=== PATIENT | female | born 1990 | race Caucasian/White ===

== ENCOUNTER 2024-09-21 21:26 | Inpatient (IN) ==
[2024-09-21 22:22] LABS: Appearance Urine Clear (Clear); Bilirubin Urine Negative (Negative); Blood Urine Negative (Negative); Color Urine Yellow; Glucose Urine UA Negative (Negative); Ketones Urine Negative (Negative); Leukocyte Esterase Urine Negative (Negative); Nitrite Urine Negative (Negative); Protein Urine Negative (Negative); Specific Gravity Urine 1.005 (1.000-1.030); Urobilinogen Urine Negative (Negative); pH Urine 7.5 (4.5-7.5)
[2024-09-21 22:26] LABS: Basophils # (auto) 0.02 K/uL (0.00-0.20); Basophils % (auto) 0.3 %; Eosinophils # (auto) 0.02 K/uL (0.00-0.50); Eosinophils % (auto) 0.3 %; Hematocrit (blood only) 42.4 % (37.0-47.0); Hemoglobin 14.5 g/dl (12.0-16.0); Immature Granulocytes # (auto) 0.01 K/uL (0.01-0.20); Immature Granulocytes % (auto) 0.1 %; Lymphocytes # (auto) 2.18 K/uL (1.20-3.40); Lymphocytes % (auto) 30.6 %; Mean Corpuscular Hemoglobin 29.2 pg (25.0-34.0); Mean Corpuscular Hgb Conc 34.2 g/dL (32.0-36.0); Mean Corpuscular Volume 85.5 fL (80.0-100.0); Mean Platelet Volume 10.8 fL (9.4-12.4); Monocytes # (auto) 0.54 K/uL (0.11-0.59); Monocytes % (auto) 7.6 %; Neutrophils # (auto) 4.35 K/uL (1.40-6.50); Neutrophils % (auto) 61.1 %; Platelet Count 257 K/uL (130-400); RDW Coefficient of Variation 12.1 % (11.5-14.5); RDW Standard Deviation 37.4 fL (36.4-46.3); Red Blood Count 4.96 M/uL (4.20-5.40); White Blood Count 7.12 K/ul (4.8-10.8)
[2024-09-21] MEDS: MAGNESIUM SULFATE / D5W 1 GM/100 ML BAG IV SCH (22:30)
[2024-09-21 22:44] LABS: Acetaminophen < 3 ug/ml (10-30); Salicylate < 3.0 mg/dl (3.0-30)
[2024-09-21] MEDS: SODIUM CHLORIDE 0.9% 1,000 ML IV ONE (22:45)
[2024-09-21 22:46] LABS: Alanine Aminotransferase 27 U/L (7-52); Albumin Globulin Ratio 1.8 (0.9-2); Albumin Level 4.8 gm/dl (3.4-5.0); Alkaline Phosphatase 47 U/L (34-104); Anion Gap 11 (3-11); Aspartate Aminotransferase 18 U/L (13-39); BUN Creatinine Ratio 7.4 (10-20); Bilirubin,Total 1.1 mg/dl (0.2-1.0); Blood Urea Nitrogen 6 mg/dl (6-23); Calcium 8.9 mg/dl (8.6-10.3); Carbon Dioxide 26 mmol/L (21-32); Chloride 103 mmol/L (98-107); Globulin 2.6 gm/dl (2.5-4.0); Glucose 61 mg/dl (70-99(Fasting)); Potassium 2.5 mmol/L (3.5-5.1); Sodium 140 mmol/L (136-145); Total Protein 7.4 gm/dl (6.0-8.3)
[2024-09-21 22:51] LABS: Magnesium 2.1 mg/dl (1.7-2.4)
[2024-09-21 23:02] LABS: Amphetamines+Metham, Urine Neg (Neg); Barbiturates, Urine Neg (Neg); Benzodiazepine, Urine Neg (Neg); Cocaine, Urine Neg (Neg); Fentanyl, Urine Neg (Neg); MDMA (Ecstacy), Urine Neg (Neg); Marijuana, Urine Neg (Neg); Methadone, Urine Neg (Neg); Opiate, Urine Neg (Neg); Phencyclidine, Urine Neg (Neg)
[2024-09-21 23:02] LABS: Phosphorus 2.9 mg/dl (2.5-4.9)
[2024-09-21 23:05] LABS: Pregnancy Test, Urine Negative (Negative)
[2024-09-21] MEDS: LORazepam 2 MG/1 ML VIAL IV STA (23:09)
[2024-09-21] MEDS: DEXTROSE 5% 1,000 ML IV SCH (23:12)
[2024-09-21] MEDS: POTASSIUM CHLORIDE / WTR 10 MEQ/100 ML PLCT IV SCH (23:12)
--- NOTE | 2024-09-21 23:51 | Emergency Department Note ---
Impression & Plan Suicide attempt, Suicide attempt by multiple drug overdose, QT prolongation ED Provider Note NAME: EJ BARLOW AGE: 34 SEX: F : 1990 ARRIVES VIA: Ambulance INFORMANT: Patient ED PROVIDER(S): Naveen Asher MD CHIEF COMPLAINT: Overdose, Suicide attempt PLAN: Disposition: Admit MEDICAL DECISION MAKING: The patient is a 34-year-old woman who presents to the emergency department via EMS for evaluation after a suicide attempt where the patient overdosed on her medications at 6 PM and attempt to kill himself. Patient reports she took 12 tablets of her Zoloft which she understands is the lowest dose, 12 tablets of 25 mg hydroxyzine, and 12 tablets of Unisom. Patient reports she feels jittery. She denies nausea or vomiting. She reports she is willing to proceed with inpatient psychiatric treatment. Patient confirms she attempted to kill herself due to from her partner. On evaluation the patient is in no acute distress, afebrile with heart in the 100s and vital signs otherwise stable. She appears clinically dry. Pupils are 4 mm and reactive. Reflexes are within normal limits. She has 2 beats of lower extremity clonus bilaterally. EKG demonstrates QTc prolongation in the 600s. QRS is within normal limits. No overt acute ischemia. WBC, H/H and platelets within normal limits. Chemistry without metabolic acidosis. Potassium was low at 2.5 with IV repletion initiated. Magnesium was 2.1 however 2 g administered due to QTc prolongation per Poison Control [facility] recommendations including to repeat EKG and electrolytes/chemistry in 4 hours. LFTs unremarkable. TSH within normal limits. UA without convincing evidence of infection. Acetaminophen and salicylates were undetectable. Drug screen was negative otherwise. Medical alcohol was 105. Patient treated with IV fluid hydration including dextrose and normal saline due to glucose in the 60s. IV Ativan administered to mitigate symptoms of overdose. Dr. [place], [facility], to evaluate the patient for admission. Repeat EKG with subsequent improved QTc. Further management per admitting team. Triage Nursing notes reviewed and agree them. Prior/external medical records reviewed Vital Signs: reviewed Differential diagnosis: Overdose, toxicologic, infection, hypoglycemia, electrolyte abnormalities, cardiac sources, intracerebral event, neurologic, trauma, as well as other pathologies. ER treatment provided: See below. Diagnostics interpreted by me: ECG 2202: Normal sinus rhythm, 99 bpm, nonspecific T wave abnormality, prolonged QTc with QTc of 690, QRS of 84. No overt ST ovation or depression. ECG 2359: Sinus tachycardia, 105 bpm, no ectopy, T wave abnormality, no overt ST elevation or depression, QTc 663, QRS 84. ECG 0221: Sinus tachycardia, 104 bpm, T wave abnormality, no overt ST elevation or depression, QTc 446, improved, QRS 82. Cardiac Monitoring: An order for continuous cardiac monitoring was placed and demonstrated sinus tachycardia, 105 bpm, no ectopy. Laboratory studies: See below Imaging studies: See below Consultation(s): Poison Control Center Dr. Govea, [facility] HPI: The patient is a 34-year-old woman who presents to the emergency department via EMS for evaluation after a suicide attempt where the patient overdosed on her medications at 6 PM and attempt to kill himself. Patient reports she took 12 tablets of her Zoloft which she understands is the lowest dose, 12 tablets of 25 mg hydroxyzine, and 12 tablets of Unisom. Patient reports she feels jittery. She denies nausea or vomiting. She reports she is willing to proceed with inpatient psychiatric treatment. Patient confirms she attempted to kill herself due to from her partner. ROS: See above HPI for pertinent positives & negatives. A total of 10 systems reviewed and were otherwise negative. VITALS:See Below PHYSICAL EXAMINATION: GENERAL: Awake, alert, in no distress HENT: Normocephalic, atraumatic. Oropharynx with dry mucous membranes and otherwise unremarkable. EYES: Normal conjunctiva. Sclera non-icteric. EOMI. No nystamgus. PEARRL. Pupils are 4 mm bilaterally and reactive. NECK: Supple. No nuchal rigidity. FROM. No JVD. RESPIRATORY: Clear to auscultation. CARDIAC: Tachycardic rate, normal rhythm. Extremities warm and well perfused. Pulses equal. ABDOMEN: Soft, non-distended. No tenderness to palpation. No rebound or guarding. No masses. MUSCULOSKELETAL: Chest examination reveals no tenderness. The back is symmetrical on inspection without obvious abnormality. There is no CVA tenderness to palpation. No joint edema. LOWER EXTREMITIES: Calves are equal size bilaterally and non-tender. No edema. No discoloration. NEURO: No sensory or motor deficits noted. DTRs wnl. 2 beats of BLE clonus. SKIN: No rash or jaundice noted. ED COURSE: Critical Care: I have personally spent greater than 45 minutes of critical care time in the direct management of this patient. This includes bedside care, interpretation of diagnostic studies, and testing, discussion with consultants, patient, and family members, and other required patient management activities. This 45 minutes is in excess of all separately billable procedures. Naveen Asher MD Past Med/Surg History Problem List (Updated 09/22/24 @ 16:46 by Naveen Asher MD) QT prolongation (Acute) Suicide attempt by multiple drug overdose (Acute) Suicide attempt (Acute) Depression Intentional self-harm Hypokalemia (Acute) Chest pain (Acute) Vaginal bleeding, abnormal History of 2019 novel coronavirus disease (COVID-19) (Acute) Abdominal pain (Acute) Abdominal pain (Acute) RLQ abdominal pain (Acute) Vasovagal near syncope (Acute) Medical History COVID-19 Surgical History S/P laparoscopy dx for endo (not found) at age 22-21 S/P tonsillectomy S/P cholecystectomy Family History Grandmother (Maternal) Lung cancer great grandmother Denies family history of Ovarian cancer Breast cancer Colorectal cancer Social History Smoking Status: Never smoker Tobacco Type: Declines Hx Alcohol Use: Yes Hx Substance Use: No Preferred Language: Romanian Communication Ability: Effective 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 Beliefs That Will Affect Care: None Current Living Situation: Significant Other Feels Safe at Home: Hesitant to Answer Safety Concerns: Feels Safe At This Time Allergies Allergies Allergy/AdvReac Type Severity Reaction Status Date / Time doxepin Allergy Severe ITCHING Unverified 07/26/24 08:34 Home Meds Home Medications Medication Instructions Recorded Confirmed hydroxyzine HCl 10 mg tablet 10 mg PO TID PRN Anxiety 09/22/24 09/22/24 sertraline 25 mg tablet 25 mg PO DAILY 09/22/24 09/22/24 Results & Data (ED) Vital Signs Vital Signs - 24 hr 09/21/24 21:15 09/21/24 21:15 09/21/24 21:50 Temperature 37.1 C Temperature Source Oral Pulse Rate 97 H 108 H Pulse Rate [Apical] Respiratory Rate 14 Respiratory Effort / Characteristics Non-Labored Spontaneous Respiratory Depth Normal Respiratory Pattern Regular Blood Pressure 126/72 Blood Pressure [Right Arm] Blood Pressure Mean 90 Blood Pressure Mean [Right Arm] Pulse Oximetry 99 99 Oxygen Delivery Method Room Air Room Air Sepsis Recent Fever Within 48 Hours No Sepsis New/Unexplained Change in Mental Status N/A Sepsis Action Taken by Nursing No Action Required 09/21/24 22:22 09/21/24 22:30 09/21/24 23:00 Temperature Temperature Source Pulse Rate Pulse Rate [Apical] 102 H 103 H 103 H Respiratory Rate 16 14 20 Respiratory Effort / Characteristics Non-Labored Spontaneous Non-Labored Spontaneous Non-Labored Spontaneous Respiratory Depth Normal Normal Normal Respiratory Pattern Regular Regular Regular Blood Pressure Blood Pressure [Right Arm] 116/69 104/71 115/67 Blood Pressure Mean Blood Pressure Mean [Right Arm] 84 82 83 Pulse Oximetry 98 99 97 Oxygen Delivery Method Room Air Room Air Room Air Sepsis Recent Fever Within 48 Hours Sepsis New/Unexplained Change in Mental Status Sepsis Action Taken by Nursing 09/21/24 23:30 09/22/24 00:00 09/22/24 00:00 Temperature Temperature Source Pulse Rate Pulse Rate [Apical] 106 H 100 H Respiratory Rate 18 23 Respiratory Effort / Characteristics Non-Labored Spontaneous Respiratory Depth Normal Respiratory Pattern Regular Blood Pressure Blood Pressure [Right Arm] 111/69 127/75 Blood Pressure Mean Blood Pressure Mean [Right Arm] 83 92 Pulse Oximetry 99 98 Oxygen Delivery Method Room Air Room Air Sepsis Recent Fever Within 48 Hours Sepsis New/Unexplained Change in Mental Status Sepsis Action Taken by Nursing Laboratory Data Attestation: I reviewed the patient's lab results. 09/22/24 05:33 09/22/24 14:34 Lab Results 09/21/24 09/21/24 09/21/24 Range/Units 21:40 21:50 21:55 WBC 7.12 (4.8-10.8) K/ul RBC 4.96 (4.20-5.40) M/uL Hgb 14.5 (12.0-16.0) g/dl Hct 42.4 (37.0-47.0) % MCV 85.5 (80.0-100.0) fL MCH 29.2 (25.0-34.0) pg MCHC 34.2 (32.0-36.0) g/dL RDW Std Deviation 37.4 (36.4-46.3) fL RDW Coeff of Elena 12.1 (11.5-14.5) % Plt Count 257 (130-400) K/uL MPV 10.8 (9.4-12.4) fL Immature Gran % (Auto) 0.1 % Neut % (Auto) 61.1 % Lymph % (Auto) 30.6 % Mariposa % (Auto) 7.6 % Eos % (Auto) 0.3 % Baso % (Auto) 0.3 % Neut # (Auto) 4.35 (1.40-6.50) K/uL Lymph # (Auto) 2.18 (1.20-3.40) K/uL Mariposa # (Auto) 0.54 (0.11-0.59) K/uL Eos # (Auto) 0.02 (0.00-0.50) K/uL Baso # (Auto) 0.02 (0.00-0.20) K/uL Immature Gran # (Auto) 0.01 (0.01-0.20) K/uL Sodium 140 (136-145) mmol/L Potassium 2.5 L* (3.5-5.1) mmol/L Chloride 103 (98-107) mmol/L Carbon Dioxide 26 (21-32) mmol/L Anion Gap 11 (3-11) BUN 6 (6-23) mg/dl Creatinine 0.81 (0.6-1.2) mg/dl Est Cr Clr Drug Dosing Not Reportable eGFR 98.85 BUN/Creatinine Ratio 7.4 L (10-20) Glucose 61 L (70-99(Fasting)) mg/dl Calcium 8.9 (8.6-10.3) mg/dl Phosphorus 2.9 (2.5-4.9) mg/dl Magnesium 2.1 (1.7-2.4) mg/dl Total Bilirubin 1.1 H (0.2-1.0) mg/dl AST 18 (13-39) U/L ALT 27 (7-52) U/L Alkaline Phosphatase 47 (34-104) U/L Total Protein 7.4 (6.0-8.3) gm/dl Albumin 4.8 (3.4-5.0) gm/dl Globulin 2.6 (2.5-4.0) gm/dl Albumin/Globulin Ratio 1.8 (0.9-2) TSH 2.700 (0.300-4.500) uIu/ml Urine Color Yellow Urine Appearance Clear (Clear) Urine pH 7.5 (4.5-7.5) Ur Specific [place] 1.005 (1.000-1.030) Urine Protein Negative (Negative) Urine Glucose (UA) Negative (Negative) Urine Ketones Negative (Negative) Urine Blood Negative (Negative) Urine Nitrite Negative (Negative) Urine Bilirubin Negative (Negative) Urine Urobilinogen Negative (Negative) Ur Leukocyte Esterase Negative (Negative) Urine Test (Negative) Salicylates < 3.0 L (3.0-30) mg/dl Urine Opiates Screen Neg (Neg) Ur Methadone, Qual Neg (Neg) Urine Fentanyl Screen Neg (Neg) Acetaminophen < 3 L (10-30) ug/ml Urine Barbiturates Neg (Neg) Ur Phencyclidine (PCP) Neg (Neg) U Amphetamin/Meth Scrn Neg (Neg) MDMA (Ecstasy) Screen Neg (Neg) U Benzodiazepines Scrn Neg (Neg) Ur Cocaine Metabolite Neg (Neg) U Marijuana (THC) Screen Neg (Neg) Ethyl Alcohol mg/dL 105.4 H (<10.0) mg/dl SARS-CoV-2, RNA, NAAT NEGATIVE (NEGATIVE) 09/21/24 Range/Units Unknown WBC (4.8-10.8) K/ul RBC (4.20-5.40) M/uL Hgb (12.0-16.0) g/dl Hct (37.0-47.0) % MCV (80.0-100.0) fL MCH (25.0-34.0) pg MCHC (32.0-36.0) g/dL RDW Std Deviation (36.4-46.3) fL RDW Coeff of Elena (11.5-14.5) % Plt Count (130-400) K/uL MPV (9.4-12.4) fL Immature Gran % (Auto) % Neut % (Auto) % Lymph % (Auto) % Mariposa % (Auto) % Eos % (Auto) % Baso % (Auto) % Neut # (Auto) (1.40-6.50) K/uL Lymph # (Auto) (1.20-3.40) K/uL Mar[place]osa # (Auto) (0.11-0.59) K/uL Eos # (Auto) (0.00-0.50) K/uL Baso # (Auto) (0.00-0.20) K/uL Immature Gran # (Auto) (0.01-0.20) K/uL Sodium (136-145) mmol/L Potassium (3.5-5.1) mmol/L Chloride (98-107) mmol/L Carbon Dioxide (21-32) mmol/L Anion Gap (3-11) BUN (6-23) mg/dl Creatinine (0.6-1.2) mg/dl Est Cr Clr Drug Dosing eGFR BUN/Creatinine Ratio (10-20) Glucose (70-99(Fasting)) mg/dl Calcium (8.6-10.3) mg/dl Phosphorus (2.5-4.9) mg/dl Magnesium (1.7-2.4) mg/dl Total Bilirubin (0.2-1.0) mg/dl AST (13-39) U/L ALT (7-52) U/L Alkaline Phosphatase (34-104) U/L Total Protein (6.0-8.3) gm/dl Albumin (3.4-5.0) gm/dl Globulin (2.5-4.0) gm/dl Albumin/Globulin Ratio (0.9-2) TSH (0.300-4.500) uIu/ml Urine Color Urine Appearance (Clear) Urine pH (4.5-7.5) Ur Specific [place] (1.000-1.030) Urine Protein (Negative) Urine Glucose (UA) (Negative) Urine Ketones (Negative) Urine Blood (Negative) Urine Nitrite (Negative) Urine Bilirubin (Negative) Urine Urobilinogen (Negative) Ur Leukocyte Esterase (Negative) Urine Test Negative (Negative) Salicylates (3.0-30) mg/dl Urine Opiates Screen (Neg) Ur Methadone, Qual (Neg) Urine Fentanyl Screen (Neg) Acetaminophen (10-30) ug/ml Urine Barbiturates (Neg) Ur Phencyclidine (PCP) (Neg) U Amphetamin/Meth Scrn (Neg) MDMA (Ecstasy) Screen (Neg) U Benzodiazepines Scrn (Neg) Ur Cocaine Metabolite (Neg) U Marijuana (THC) Screen (Neg) Ethyl Alcohol mg/dL (<10.0) mg/dl SARS-CoV-2, RNA, NAAT (NEGATIVE) Administered Medications Discontinued Medications Magnesium Sulfate/Dextrose (Magnesium Sulfate / D5w) 1 gm in 100 mls @ 200 mls/hr IV Q30M PROSPER Stop: 09/21/24 23:17 Last Infusion: 09/21/24 23:52 Dose: Infused Documented By: Admin: 09/21/24 23:12 Dose: 200 mls/hr Documented By: Infusion: 09/21/24 23:05 Dose: Infused Documented By: Admin: 09/21/24 22:30 Dose: 200 mls/hr Documented By: RANJAN Sodium Chloride (Nss) 1,000 mls @ 999 mls/hr IV .Q1H1M ONE Stop: 09/21/24 23:38 Last Infusion: 09/21/24 23:52 Dose: Infused Documented By: Admin: 09/21/24 22:45 Dose: 999 mls/hr Documented By: RANJAN Dextrose (D5w) 1,000 mls @ 999 mls/hr IV .Q1H1M PROSPER Stop: 09/22/24 22:59 Last Admin: 09/22/24 00:45 Dose: Not Given Documented By: Infusion: 09/22/24 00:42 Dose: Infused Documented By: Admin: 09/21/24 23:12 Dose: 999 mls/hr Documented By: RANJAN Potassium Chloride (K Julian / Wtr) 10 meq in 100 mls @ 100 mls/hr IV Q1H PROSPER Stop: 09/22/24 02:59 Last Infusion: 09/22/24 04:10 Dose: Infused Documented By: Admin: 09/22/24 02:40 Dose: 100 mls/hr Documented By: Infusion: 09/22/24 02:40 Dose: Infused Documented By: Admin: 09/22/24 01:45 Dose: 100 mls/hr Documented By: Infusion: 09/22/24 01:39 Dose: Infused Documented By: Admin: 09/22/24 00:39 Dose: 100 mls/hr Documented By: Infusion: 09/22/24 00:12 Dose: Infused Documented By: Admin: 09/21/24 23:12 Dose: 100 mls/hr Documented By: RANJAN Dextrose (D5w) 1,000 mls @ 999 mls/hr IV .Q1H1M ONE Stop: 09/22/24 01:43 Last Admin: 09/22/24 00:44 Dose: Not Given Documented By: SARBJIT Lactated Ringer's (Lr) 1,000 mls @ 125 mls/hr IV .Q8H PROSPER Stop: 09/22/24 11:09 Last Infusion: 09/22/24 12:46 Dose: Infused Documented By: Admin: 09/22/24 04:24 Dose: 125 mls/hr Documented By: MARKEL Lorazepam (Lorazepam 2 Mg/1 Ml Vial) 1 mg IV NOW STA Stop: 09/21/24 22:55 Last Admin: 09/21/24 23:09 Dose: 1 mg Documented By: RANJAN Discharge Plan Visit Data Chief Complaint: Overdose (Intentional) Stated Complaint: OVERDOSE ED Provider: Naveen Asher Discharge Problem: Suicide attempt, Suicide attempt by multiple drug overdose, QT prolongation Patient Disposition: Admitted As Inpatient Discharge Instructions Interventions: ED Discharge Assessment Last Done: 09/22/24 03:10 Discharge Problem: Suicide attempt by multiple drug overdose Qualifiers: Encounter type: initial encounter Qualified Code(s): T50.912A - Poisoning by multiple unspecified drugs, medicaments and biological substances, intentional self-harm, initial encounter
[2024-09-22] MEDS: DEXTROSE 5% 1,000 ML IV ONE (00:44)
--- NOTE | 2024-09-22 01:24 | History & Physical Report ---
Date of Service September 22, 2024 Assessment & Plan (1) Hypokalemia: (2) Intentional self-harm: (3) Depression: Plan 34 y/o female with history of depression adn anxiety here for intentional overdose. She took 10-12 unison, 10-12 Hydroxyzine and unknown amount of Zoloft. She confirmed that was intentional to harm herself. Intentional overdose - 10-12 Unison,10-12 hydroxyzine and 10-12 Sertraline - Vital signs stable: sinus tachycardia - Labs remarkable for hypokalemia and hypoglycemia - Toxicology: alcohol 104 - No urinary retention, no hallucinations, no altered mental satus - s/p 1 mg Ativan, Dextrose and IV potassium - EKG: Prolonged QT, sinus tachycardia - Seizures precautions - Ativan 0.5 mg prn for seizures/ agitation - Continue symptomatic treatment - If nauseous, consider Compazine prn. - Avoid medications that prolong QTc - Psychiatry consulted - Watch for anticholinergic signs - EKG Q4 hr - BMP and Mag q4 hr Electrolytes disturbances: - Hypokalemia 2.4 - s/p 40 mEqu Potassium - BMP and MAg Q4hr - EKG q4hr - Replace as needed Depression - Hold Sertraline and hydroxyzine FEN: Regular Code status: full code DVT ppx: SCDs Dispo: PCU/ telemetry History of Present Illness Primary Care Provider: Lorna Mercado is a 34 y/o female with PMH of depression and anxiety here after suicide attempt. she states she took 10-12 of unison, 10-12 of hydroxyzine and an unknown amount of Sertraline. She takes 25 mg of Sertraline daily. she states she wanted to harm herself after a discussion with partner. Denied any suicide intention at the moment of my interview. She is willing to stay and be seen by Psychiatry. She complains of fatigue and generalized malaise. States has mouth dry. She is voiding well. Denied abdominal pain, fevers, chills, nausea, abdominal pain, diarrhea. Denied any urinary retention, no dysuria, no urgency. Denied any chest pain Denied any hallucinations Ed course: Was given zofram by EMS. IV potassium and IV magnesium by ED provider. Ativan 1 mg Allergies Allergy/AdvReac Type Severity Reaction Status Date / Time doxepin Allergy Severe ITCHING Unverified 07/26/24 08:34 Home Medications Medication Instructions Recorded Confirmed Type hydroxyzine HCl 10 mg tablet 10 mg PO TID PRN Anxiety 09/22/24 09/22/24 History sertraline 25 mg tablet 25 mg PO DAILY 09/22/24 09/22/24 History Past Med/Surg History Problem List Relationship problem with boyfriend QT prolongation (Acute) Suicide attempt by multiple drug overdose (Acute) Suicide attempt (Acute) Depression Intentional self-harm Hypokalemia (Acute) Chest pain (Acute) Vaginal bleeding, abnormal History of 2019 novel coronavirus disease (COVID-19) (Acute) Abdominal pain (Acute) Abdominal pain (Acute) RLQ abdominal pain (Acute) Vasovagal near syncope (Acute) Medical History COVID-19 Surgical History S/P laparoscopy dx for endo (not found) at age 22-21 S/P tonsillectomy S/P cholecystectomy Family History Grandmother (Maternal) Lung cancer great grandmother Denies family history of Ovarian cancer Breast cancer Colorectal cancer Social History Smoking Status: Never smoker Tobacco Type: Declines Hx Alcohol Use: Yes Hx Substance Use: No Preferred Language: Iraqi Communication Ability: Effective 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 Beliefs That Will Affect Care: None Current Living Situation: Significant Other Feels Safe at Home: Hesitant to Answer Review of Systems Review of Systems: as per HPI Physical Exam Constitutional: WD/WN, vitals as above Eyes: PERRL, conjunctivae normal, anicteric sclerae ENMT: external ear and nose normal, oropharynx normal Respiratory: normal respiratory effort, lungs clear to auscultation Cardiovascular: Rate/Rhythm: regular rhythm and + tachycardic Heart Sounds: normal S1 and normal S2 Extremities: no edema Gastrointestinal (Abdomen): normal bowel sounds, soft, nontender, no hepatosplenomegaly Skin: no rashes, warm and dry Results & Data Results & Data Vital Signs (Past 12 Hours) Vital Signs Temp Pulse Pulse Resp BP BP Pulse Ox 09/22/24 00:00 100 H 23 127/75 98 09/22/24 00:00 09/21/24 23:30 106 H 18 111/69 99 09/21/24 23:00 103 H 20 115/67 97 09/21/24 22:30 103 H 14 104/71 99 09/21/24 22:22 102 H 16 116/69 98 09/21/24 21:50 108 H 09/21/24 21:15 99 09/21/24 21:15 37.1 C 97 H 14 126/72 99 O2 Del Method 09/22/24 00:00 09/22/24 00:00 Room Air 09/21/24 23:30 Room Air 09/21/24 23:00 Room Air 09/21/24 22:30 Room Air 09/21/24 22:22 Room Air 09/21/24 21:50 09/21/24 21:15 Room Air 09/21/24 21:15 Room Air Code Status & VTE Plan VTE Prophylaxis Plan VTE Prophylaxis will be ordered: Yes Supervising Physician Co-Signing Physician Notes Attending addendum: I have physically seen this patient, have supervised the medical residents activities, and agree with the H&P unless as otherwise noted. Assessment and Plan: The patient is a 34-year-old female with past medical history including depression and anxiety, who presents to the emergency department with reported intentional overdose of 10-12 Unisom, 10-12 hydroxyzine, and unknown number of Zoloft. Patient is showing mild sinus tachycardia in the emergency department, with EKG sinus tach at 105. #Intentional overdose- Patient reportedly took 10-12 Unisom, 10-12 hydroxyzine, and unknown numbers of sertraline The patient will be admitted to telemetry for serial cardiac enzymes, serial EKG's, cardiac rhythm monitoring and a 2-D echocardiogram with Dopplers. Alcohol level 105.4 In the ED received lorazepam 1 mg IV, dextrose and IV potassium Seizure precautions Consult psychiatry Serial CBC with differential, chemistry profile and magnesium levels as recommended Electrolyte disturbances/hypokalemia- Potassium 2.5 on admission and magnesium 2.1 Replacing potassium both orally and IV as noted, and recheck laboratories in a.m. Depression-holding sertraline and hydroxyzine until seen by hr administrative assistant Activity Tracking Resident Involvement: Resident Care Provided Care Provided: Adult [facility] Medicine
[2024-09-22] MEDS ORDERED: ACETAMINOPHEN 325 MG TAB PO PRN (03:10)
[2024-09-22] MEDS ORDERED: LORazepam 2 MG/1 ML VIAL IV PRN (03:10)
[2024-09-22 03:32] LABS: Anion Gap 3 (3-11); BUN Creatinine Ratio 5.3 (10-20); Blood Urea Nitrogen 4 mg/dl (6-23); Calcium 8.4 mg/dl (8.6-10.3); Carbon Dioxide 28 mmol/L (21-32); Chloride 110 mmol/L (98-107); Glucose 92 mg/dl (70-99(Fasting)); Magnesium 2.6 mg/dl (1.7-2.4); Potassium 3.6 mmol/L (3.5-5.1); Sodium 141 mmol/L (136-145)
[2024-09-22] MEDS: LACTATED RINGER'S 1,000 ML IV SCH (04:24)
[2024-09-22 05:52] LABS: Basophils # (auto) 0.01 K/uL (0.00-0.20); Basophils % (auto) 0.1 %; Hematocrit (blood only) 38.8 % (37.0-47.0); Hemoglobin 13.2 g/dl (12.0-16.0); Immature Granulocytes # (auto) 0.02 K/uL (0.01-0.20); Immature Granulocytes % (auto) 0.2 %; Lymphocytes % (auto) 14.4 %; Mean Corpuscular Hemoglobin 29.3 pg (25.0-34.0); Mean Platelet Volume 10.7 fL (9.4-12.4); Monocytes # (auto) 0.81 K/uL (0.11-0.59); Neutrophils # (auto) 6.86 K/uL (1.40-6.50); Neutrophils % (auto) 76.3 %; Platelet Count 222 K/uL (130-400); RDW Coefficient of Variation 12.2 % (11.5-14.5); RDW Standard Deviation 37.8 fL (36.4-46.3); Red Blood Count 4.51 M/uL (4.20-5.40)
[2024-09-22 06:09] LABS: Calcium 8.4 mg/dl (8.6-10.3); Creatinine Clr Calc Pharmacy 113.8 ml/min; Magnesium 2.2 mg/dl (1.7-2.4); Potassium 3.9 mmol/L (3.5-5.1)
[2024-09-22 10:56] LABS: BUN Creatinine Ratio 3.8 (10-20); Calcium 8.9 mg/dl (8.6-10.3); Creatinine Clr Calc Pharmacy 106.7 ml/min; Magnesium 2.2 mg/dl (1.7-2.4)
--- NOTE | 2024-09-22 11:42 | Electrocardiogram Report ---
Test Reason : Blood Pressure : */* mmHG Vent. Rate : 91 BPM Atrial Rate : 91 BPM P-R Int : 186 ms QRS Dur : 82 ms QT Int : 386 ms P-R-T Axes : 63 92 44 degrees QTcB Int : 474 ms Normal sinus rhythm Rightward axis Low voltage QRS Nonspecific T wave abnormality Prolonged QT Abnormal ECG When compared with ECG of 22-Sep-2024 02:21, (unconfirmed) No significant change was found Confirmed by Suzette Da Silva ([id number]) on 09/22/2024 11:41:42 AM Referred By: REFERRED SELF Confirmed By: Suzette Da Silva
--- NOTE | 2024-09-22 12:08 | Electrocardiogram Report ---
Test Reason : Blood Pressure : */* mmHG Vent. Rate : 104 BPM Atrial Rate : 104 BPM P-R Int : 204 ms QRS Dur : 82 ms QT Int : 370 ms P-R-T Axes : 61 87 48 degrees QTcB Int : 486 ms Sinus tachycardia Low voltage QRS T wave abnormality, consider anterior ischemia Abnormal ECG When compared with ECG of 21-Sep-2024 23:59, (unconfirmed) Sinus rhythm has replaced Junctional rhythm QT has shortened Confirmed by Suzette Da Silva (Arcadio) on 09/22/2024 12:08:20 PM Referred By: REFERRED SELF Confirmed By: Suzette Da Silva
--- NOTE | 2024-09-22 12:08 | Electrocardiogram Report ---
Test Reason : Blood Pressure : */* mmHG Vent. Rate : 99 BPM Atrial Rate : 99 BPM P-R Int : 176 ms QRS Dur : 84 ms QT Int : 538 ms P-R-T Axes : 55 91 63 degrees QTcB Int : 690 ms Normal sinus rhythm Rightward axis Nonspecific T wave abnormality Prolonged QT Abnormal ECG When compared with ECG of 09-Sep-2024 10:16, T wave inversion no longer evident in Inferior leads QT has lengthened significantly Confirmed by Suzette Da Silva (Arcadio) on 09/22/2024 12:07:55 PM Referred By: REFERRED SELF Confirmed By: Suzette Da Silva
--- NOTE | 2024-09-22 12:10 | Electrocardiogram Report ---
Test Reason : Blood Pressure : */* mmHG Vent. Rate : 105 BPM Atrial Rate : * BPM P-R Int : * ms QRS Dur : 84 ms QT Int : 502 ms P-R-T Axes : * 94 58 degrees QTcB Int : 663 ms Sinus tachycardia Rightward axis T wave abnormality, consider anterior ischemia Prolonged QT Abnormal ECG When compared with ECG of 21-Sep-2024 22:02, (unconfirmed) QTc prolonged Confirmed by Suzette Da Silva ([id number]) on 09/22/2024 12:09:42 PM Referred By: REFERRED SELF Confirmed By: Suzette Da Silva
[2024-09-22 15:03] LABS: BUN Creatinine Ratio 3.9 (10-20); Calcium 8.8 mg/dl (8.6-10.3); Creatinine Clr Calc Pharmacy 112.3 ml/min; Magnesium 2.2 mg/dl (1.7-2.4); Potassium 3.8 mmol/L (3.5-5.1)
--- NOTE | 2024-09-22 16:53 | Psychiatric Consultation ---
Date of Consultation September 22, 2024 Impression / Recommendations Estrada Mercado is a 34 yo woman admitted medically following an intentional overdose suicide attempt. Diagnostically consistent with MDD in the context of recent stressors including breakup of long-term relationship with whom she lives. Acute risk of self-harm remains elevated and high given suicide attempt requiring medical admission, major depressive symptoms, impulsivity, access to lethal means, limited insight. Given elevated risk of harm to self they meet criteria for inpatient psychiatric care for diagnostic clarification, safety/stabilization, development of additional coping skills, medication management and disposition/safety planning once medically stable. If they do not agree to voluntary treatment at that time they will meet criteria for 302 status based on severity of suicide attempt and ongoing modifiable risk factors. Overall, I spent a total of 45 minutes with this case including review of chart records, review of labwork, direct evaluation of the patient at bedside, counseling the patient, discussion of the patient with the hospitalist provider, discussion with the psychiatric liason during clinical rounds and documentation in the electronic health record. (1) Suicide attempt by multiple drug overdose: Encounter type: initial encounter Qualified Code(s): T50.912A - Poisoning by multiple unspecified drugs, medicaments and biological substances, intentional self-harm, initial encounter (2) QT prolongation: (3) Depression: (4) Relationship problem with boyfriend: Plan -Continue 1-on-1 for risk of harm to self -Do not discharge or allow to leave AMA as she meets 302 criteria -Hold psych medications for now given overdose -Once medically cleared plan for psychiatric hospitalization (either 201 or 302 status). Currently she is expressing willingness for 201 status. Psych History Identifying Data Rogelio Groves is a 34 y/o woman with history of depression and anxiety admitted following suicide attempt via polypharmacy. Psychiatry consulted given suicide attempt. Chief Complaint "To get relief". History of Present Illness Rogelio was medically admitted following a suicide attempt via medication overdose (04-07 unison, 10- Hydroxyzine and unknown amount of Zoloft) in the context of a recent breakup from a 7-year relationship. The attempt occurred yesterday after a conversation with her ex-partner about their relationship status that did not go well. She had been thinking about suicide for approximately 15 minutes before impulsively taking an unspecified quantity of pills. She acknowledges consuming alcohol yesterday, specifically two 8% hard ciders and a hard seltzer, which is atypical for her. She reports that she and her ex-partner have been living together for the past 3 weeks since their breakup, with her ex-partner working night shifts and her working day shifts so they rarely see one another. Currently, she expresses uncertainty about her feelings regarding being alive though notes "today a lot better". She reports no prior suicide attempts. She works in [employer], which may have influenced her understanding of medication effects, although she denies knowing what they would do and did not research the pills she took before the overdose. Prior to this incident, approximately one month ago, she had started teletherapy and was prescribed Zoloft and Vistaril by her primary care physician. She reports a history of two negative experiences with inpatient psychiatric treatment as an adolescent. She expressed a preference for voluntary inpatient treatment over involuntary treatment. Psychiatric ROS notable for no current symptoms of jaspal or psychosis reported. Her current living situation involves residing with her ex-partner, and there are many firearms present in the home (>50), some of which are unsecured. She owns one of these firearms. Allergies Allergy/AdvReac Type Severity Reaction Status Date / Time doxepin Allergy Severe ITCHING Unverified 07/26/24 08:34 Home Medications Medication Instructions Recorded Confirmed Type hydroxyzine HCl 10 mg tablet 10 mg PO TID PRN Anxiety 09/22/24 09/22/24 History sertraline 25 mg tablet 25 mg PO DAILY 09/22/24 09/22/24 History Patient History Medical History COVID-19 Surgical History S/P laparoscopy dx for endo (not found) at age 20-21 S/P tonsillectomy S/P cholecystectomy Family History Grandmother (Maternal) Lung cancer great grandmother Denies family history of Ovarian cancer Breast cancer Colorectal cancer Social History Smoking Status: Never smoker Tobacco Type: Declines Hx Alcohol Use: Yes Hx Substance Use: No Preferred Language: British Communication Ability: Effective Lithographic Photographer Required: No Beliefs That Will Affect Care: None Current Living Situation: Significant Other Feels Safe at Home: Hesitant to Answer Safety Concerns: Feels Safe At This Time Physical Exam Psychiatric: Orientation: alert, oriented x 3 and + guarded Eye Contact: good eye contact Motor Behavior: no abnormal motor movements Speech: normal rate/rhythm/volume of speech Affect: + constricted affect Mood: + depressed mood and + anxious mood Thought Process: + concrete thought process Thought Content: reality based without delusions Suicidal Thoughts: denies suicidal thoughts (but s/p serious overdose) Homicidal Thoughts: denies homicidal thoughts Hallucinations: no auditory hallucinations and no visual hallucinations Insight: + limited insight Judgment: + limited judgement Vital Signs (Past 24 Hours): Last Vital Signs Temp 37.1 C 09/21/24 21:15 Pulse 88 09/22/24 15:43 Resp 18 09/22/24 14:00 BP 115/80 09/22/24 14:00 Pulse Ox 98 09/22/24 14:00 O2 Del Method Room Air 09/22/24 14:00 Coding Level of Care Code 29028 IN/OBS CONSULT LVL 3,45M Diagnoses Suicide attempt by multiple drug overdose T50.912A Encounter type: initial encounter QT prolongation R94.31 Depression F32.A Relationship problem with boyfriend Z63.0
[2024-09-22 18:28] LABS: BUN Creatinine Ratio 3.8 (10-20); Calcium 9.2 mg/dl (8.6-10.3); Creatinine Clr Calc Pharmacy 109.5 ml/min; Magnesium 2.3 mg/dl (1.7-2.4); Potassium 3.7 mmol/L (3.5-5.1)
--- NOTE | 2024-09-22 20:30 | Billing Data ---
Date of Service September 22, 2024 Coding Level of Care Code 36279 INT INP/OBS CARE
[2024-09-22 23:05] LABS: Calcium 8.5 mg/dl (8.6-10.3); Creatinine Clr Calc Pharmacy 106.7 ml/min; Magnesium 2.2 mg/dl (1.7-2.4); Potassium 3.3 mmol/L (3.5-5.1)
[2024-09-23 06:43] LABS: Hematocrit (blood only) 39.2 % (37.0-47.0); Mean Corpuscular Hgb Conc 33.2 g/dL (32.0-36.0); Mean Corpuscular Volume 87.5 fL (80.0-100.0); Mean Platelet Volume 11.4 fL (9.4-12.4); Platelet Count 205 K/uL (130-400); RDW Coefficient of Variation 12.7 % (11.5-14.5); RDW Standard Deviation 40.4 fL (36.4-46.3); Red Blood Count 4.48 M/uL (4.20-5.40); White Blood Count 5.53 K/ul (4.8-10.8)
[2024-09-23] MEDS: POTASSIUM CHLORIDE CRTAB 20 MEQ TABCR PO STA (08:01)
--- NOTE | 2024-09-23 10:47 | Hospitalist Progress Note ---
Date of Service September 23, 2024 Assessment & Plan (1) Hypokalemia: (2) Intentional self-harm: (3) Depression: (4) QT prolongation: Plan 34 y/o female with history of depression adn anxiety here for intentional overdose. She took 10-12 unison, 10-12 Hydroxyzine and unknown amount of Zoloft. She confirmed that was intentional to harm herself. Intentional overdose - 10-12 Unison,10-12 hydroxyzine and 10-12 Sertraline - Psychiatry consulted, appreciate rec -Patient should not be allowed to sign out AMA -Plan is for inpatient psych -Monitor QT, electrolytes - Hypokalemia Improving - s/p 40 mEqu Potassium - BMP and MAg Q4hr - EKG q4hr - Replace as needed Depression - Hold Sertraline and hydroxyzine FEN: Regular Code status: full code DVT ppx: SCDs Dispo: PCU/ telemetry Hopefully discharge to inpatient psych tomorrow Admission and Anticipated Discharge Date Admission Date: September 22, 2024 Subjective Patient seen and examined, stable denies any suicidal ideation denies chest pain or shortness of breath. Review of Systems Review of Systems: All systems reviewed are negative, apart from the ones contained in the history. Physical Exam Physical Exam: The patient is awake, alert and oriented 3, well developed and well nourished, normocephalic and atraumatic, lying in bed and in no acute distress. HEENT--PERRL, EOMI, mucous membranes and oropharynx mildly dry Neck--supple. No JVD. No bruits. Thyroid normal, trachea midline, no adenopathy. Heart--normal S1 and S2. No murmurs, rubs or gallops. Lungs--clear bilaterally, no respiratory distress, no accessory muscle use. Abdomen--normal bowel sounds and soft. Extremities--no cyanosis or clubbing. No edema. Dermatologic--normal skin turgor, normal color, no abnormal lymph nodes, no mavis h. Neurologic--cranial nerves II through XII grossly intact. Rheumatologic--normal range of motion. Psychiatric--normal affect. Results & Data Results & Data Vital Signs (Past 12 Hours) Vital Signs Temp Pulse Resp BP Pulse Ox Pulse Ox O2 Del Method 09/23/24 10:24 98.4 F 84 17 114/73 97 09/23/24 09:53 74 09/23/24 08:56 98 09/23/24 06:59 98.2 F 78 18 111/75 98 09/23/24 03:00 97.9 F 83 16 115/81 99 Room Air 09/23/24 00:00 99 09/22/24 22:51 76 O2 Del Method 09/23/24 10:24 09/23/24 09:53 09/23/24 08:56 Room Air 09/23/24 06:59 09/23/24 03:00 09/23/24 00:00 Room Air 09/22/24 22:51 PG Care Time/CCT Total # of Minutes Spent Total Time Spent with Patient: Total time spent is greater than 50% in coordination of care (as documented) at patient's floor/unit and/or counseling patient: Coding Level of Care Code 98981 SUB INP/OBS CARE 2/35MIN Diagnoses Hypokalemia E87.6 Intentional self-harm X83.8XXA Depression F32.A QT prolongation R94.31 Time Spent (min) 35
--- NOTE | 2024-09-23 13:50 | Electrocardiogram Report ---
Test Reason : Blood Pressure : */* mmHG Vent. Rate : 96 BPM Atrial Rate : 96 BPM P-R Int : 164 ms QRS Dur : 80 ms QT Int : 388 ms P-R-T Axes : 52 89 10 degrees QTcB Int : 490 ms Normal sinus rhythm Low voltage QRS T wave abnormality, consider anterolateral ischemia Abnormal ECG When compared with ECG of 22-Sep-2024 06:01, No significant change was found Confirmed by Suzette Da Silva ([id number]) on 09/23/2024 1:50:15 PM Referred By: REFERRED SELF Confirmed By: Suzette Da Silva
[2024-09-24 06:58] VITALS: O2SAT 96
[2024-09-24 08:07] LABS: BUN Creatinine Ratio 8.2 (10-20); Creatinine Clr Calc Pharmacy 100.6 ml/min; Potassium 3.8 mmol/L (3.5-5.1)
--- NOTE | 2024-09-24 08:20 | Electrocardiogram Report ---
Test Reason : Blood Pressure : */* mmHG Vent. Rate : 70 BPM Atrial Rate : 70 BPM P-R Int : 166 ms QRS Dur : 76 ms QT Int : 388 ms P-R-T Axes : 61 92 50 degrees QTcB Int : 419 ms Normal sinus rhythm Rightward axis Nonspecific T wave abnormality Septal leads Borderline ECG When compared with ECG of 23-Sep-2024 05:35, T wave inversion less evident in Anterior leads Confirmed by Jose Silva ([id number] on 09/24/2024 8:20:01 AM Referred By: REFERRED SELF Confirmed By: Jose Silva
--- NOTE | 2024-09-24 09:38 | Discharge Summary ---
Date of Service September 24, 2024 Admission HPI Per Admitting Provider Rogelio is a 34 y/o female with PMH of depression and anxiety here after suicide attempt. she states she took 10-12 of unison, 10-12 of hydroxyzine and an unknown amount of Sertraline. She takes 25 mg of Sertraline daily. she states she wanted to harm herself after a discussion with partner. Denied any suicide intention at the moment of my interview. She is willing to stay and be seen by Psychiatry. She complains of fatigue and generalized malaise. States has mouth dry. She is voiding well. Denied abdominal pain, fevers, chills, nausea, abdominal pain, diarrhea. Denied any urinary retention, no dysuria, no urgency. Denied any chest pain Denied any hallucinations Ed course: Was given zofram by EMS. IV potassium and IV magnesium by ED provider. Ativan 1 mg Admission Exam (Per Admitting) Constitutional The patient is awake, alert and oriented 3, well developed and well nourished, normocephalic and atraumatic, lying in bed and in no acute distress. HEENT--PERRL, EOMI, mucous membranes and oropharynx mildly dry Neck--supple. No JVD. No bruits. Thyroid normal, trachea midline, no adenopathy. Heart--normal S1 and S2. No murmurs, rubs or gallops. Lungs--clear bilaterally, no respiratory distress, no accessory muscle use. Abdomen--normal bowel sounds and soft. Extremities--no cyanosis or clubbing. No edema. Dermatologic--normal skin turgor, normal color, no abnormal lymph nodes, no rash. Neurologic--cranial nerves II through XII grossly intact. Rheumatologic--normal range of motion. Psychiatric--normal affect. Discharge Data Consultations 09/21/24 23:57 ED Decision to Admit Stat 09/22/24 03:10 Consult Psychiatry Routine Hospital Course (1) Hypokalemia: (2) Intentional self-harm: (3) Depression: (4) QT prolongation: Plan 34 y/o female with history of depression adn anxiety here for intentional overdose. She took 10-12 unison, 10-12 Hydroxyzine and unknown amount of Zoloft. She confirmed that was intentional to harm herself. Intentional overdose - 10-12 Unison,10-12 hydroxyzine and 10-12 Sertraline - Psychiatry consulted, appreciate rec -Patient should not be allowed to sign out AMA -Electrolytes have normalized and QT interval has shortened -Patient is now medically stable and cleared for inpatient psych - Hypokalemia Improving - s/p 40 mEqu Potassium - BMP and MAg Q4hr - EKG q4hr - Replace as needed Depression - Hold Sertraline and hydroxyzine FEN: Regular Code status: full code DVT ppx: SCDs Dispo: PCU/ telemetry discharge to inpatient psych Coding Level of Care Code 69518 INP/OBS DISCH >30 MIN Diagnoses Hypokalemia E87.6 Intentional self-harm X83.8XXA Depression F32.A QT prolongation R94.31 Time Spent (min) 35
[2024-09-24 10:39] VITALS: BP 99/66; PULSE 78; RESP 18; TEMP 98.2
== END 2024-09-24 13:57 | DRG 918 ==
LOC: ED 21:26 → EDINP 09-22 01:18 → SUATTDRO 09-22 01:18 → 2S 09-22 16:51

== ENCOUNTER 2024-09-24 13:38 | Inpatient (IN) ==
[2024-09-24 14:59] VITALS: O2SAT 97
[2024-09-24] MEDS ORDERED: SODIUM CHLORIDE 0.65% NA SOLN 45 ML (OCEAN) PRN (14:59)
[2024-09-24] MEDS ORDERED: hydrOXYzine HCl 25 MG TAB PO PRN ×2 (14:59)
[2024-09-24] MEDS ORDERED: MAGNESIUM HYDROXIDE SUSP 30 ML UDC PO PRN (14:59)
[2024-09-24] MEDS ORDERED: ALUMINUM/MAGNESIUM SUSP 30 ML UDC PO PRN (14:59)
[2024-09-24] MEDS ORDERED: BISMUTH SUBSALICYLATE 262 MG CHEW PO PRN (14:59)
[2024-09-24] MEDS: MELATONIN 3 MG TAB PO SCH (21:26)
--- NOTE | 2024-09-25 09:04 | History & Physical ---
Date of Service September 25, 2024 Impression / Recommendations Impression EJ BARLOW is a 34-year-old woman who currently lives in [place] with ex-partner and sometimes his sons, has a history of depression and anxiety, and was admitted on 09/24/24 13:42 on a 201 voluntary commitment for suicide attempt via polypharmacy. Diagnostically consistent with generalized anxiety disorder, major depressive disorder, and trauma/stressor-related disorder with features of complex trauma exposure and high JINA score (8) but not meeting full PTSD criteria. Recent relationship difficulties and communication issues are noted to be exacerbating current symptoms. Татьяна BPD screening was negative but some features of mood lability with anger, abandonment concerns and distrust that significantly negatively impacted her romantic relationship and for which DBT is likely to be very beneficial. Discussed medication treatment options in detail. Discussed risks, benefits and alternatives. Patient has agreed to discontinue Zoloft and start Paxil at half the normal starting dose due to medication sensitivity and possible slow metabolizer status. Hydroxyzine 10mg will be available as needed for anxiety and 25mg prn for insomnia and melatonin will be available as needed for sleep. Sleep hygiene measures including sound machine, washcloth for eyes, and earplugs were discussed. Discussed medication treatment options in detail. Discussed risks, benefits and alternatives. Reviewed side effects including but not limited to: GI, DEVI, sexual side effects, short-half life with potential for SSRI withdrawal with Paxil. Plan to take Paxil in morning with option to switch to nighttime if drowsiness occurs. Treatment plan includes referral to [facility] for virtual intensive outpatient program incorporating DBT and CBT components. Will collaborate with social work for safety planning and support system identification. Overall I spent a total of 75 minutes for this admission including review of chart records, review of labwork, direct evaluation of the patient, counseling the patient, ordering medication, risk assessment, discussion with the psychiatric liason RN and documentation in the electronic health record. (1) Suicide attempt by multiple drug overdose: Encounter type: initial encounter Qualified Code(s): T50.912A - Poisoning by multiple unspecified drugs, medicaments and biological substances, intentional self-harm, initial encounter (2) Trauma and stressor-related disorder: (3) MDD (major depressive disorder), recurrent episode, severe: (4) SUSAN (generalized anxiety disorder): (5) Relationship problem with boyfriend: Plan 09/25/2024: The patient was admitted to the [facility] ([facility] inpatient mental health unit) on q15 min checks (behavioral with suicide precautions) for safety. The patient will participate in group, recreational, and milieu therapies and will be offered additional individual and family sessions as clinically appropriate. -Start Paxil 10mg daily -Vistaril 10mg anxiety prn and 25mg HS insomnia prn -Recommending [facility] IOP -Reviewed symptom questionnaires: PHQ-9, SUSAN-7, JINA, Татьяна BPD, Mood Disorder Q Inventory Assets Strengths: supportive relationships, willing to get treatment Needs: safety and stabilization, medication adjustment, additional coping skills, increased outpatient services Suicide Risk Level Suicide Risk Level: High-Moderate (q15 min suicide checks) (s/p serious attempt but now denying SI and feels safe in the hospital and able to ask for support) Suicide Risk Level Comments: Risk Factors Assessment Male: No : Yes Do You Have Access To A Gun?: Yes Health Problems: No Mental Health Diagnoses: Yes Substance Use Disorders: No Previous Attempt: Yes (leading to admission) Family History of Suicide: Yes Previous Psychiatric Hospitalization: Yes Hopelessness: No Protective Factors Assessment Employed: Yes Stable Relationships: Yes (but with recent breakup) Supportive Family: No Good Rapport with Provider: Yes Psychiatric History Identifying Data EJ BARLOW is a 34-year-old woman who currently lives in [place] with ex-partner and sometimes his sons, has a history of depression and anxiety, and was admitted on 09/24/24 13:42 on a 201 voluntary commitment for suicide attempt via polypharmacy. Chief Complaint "I regretted it immediately, I will never do that again". History of Present Illness She presents for psychiatric admission following suicide attempt via polypharmacy overdose in the context of multiple stressors including the end of her relationship with her partner about a month ago, ongoing cohabitation with her ex-partner, and a history of childhood trauma with significant difficulty with trust and communication. Her symptoms have been ongoing issues but have worsened over the past month following the end of her relationship. She reports feeling 'great' today, which she notes is different from how she has felt over the past couple of months, attributing this to being 'happy to be here.' However, she continues to struggle with anxiety, particularly in her relationships, describing a hard time communicating, which leads to issues and anger. She also mentions having trust issues stemming from fear of abandonment, which affects her romantic relationships. She reports hyperfixating on things, though this has improved with recent Zoloft use She endorses symptoms of anxiety including difficulty communicating, trust issues, fear of abandonment, and hyperfixation. She denies current panic attacks but mentions experiencing them as a child during arguments with her mother. Started outpatient therapy and they were discussing that her trust issues were leading her to be scared of being alone and she agrees with this. She is currently prescribed sertraline 25mg which was started about three weeks ago (seemed to help her feel more centered but caused elevated heart rate and numbness/tingling). Psychiatric ROS notable for no current nor history of symptoms of jaspal, psychosis, PTSD, OCD (but can get hyperfixated on things) nor eating disorder. History of self-harm via cutting, not since adolescence. Additional history per my consult note on 09/22/2024: " Ej was medically admitted following a suicide attempt via medication overdose (04-07 unison, 04-07 Hydroxyzine and unknown amount of Zoloft) in the context of a recent breakup from a 7-year relationship. The attempt occurred yesterday after a conversation with her ex-partner about their relationship status that did not go well. She had been thinking about suicide for approximately 15 minutes before impulsively taking an unspecified quantity of pills. She acknowledges consuming alcohol yesterday, specifically two 8% hard ciders and a hard seltzer, which is atypical for her. She reports that she and her ex-partner have been living together for the past 3 weeks since their breakup, with her ex-partner working night shifts and her working day shifts so they rarely see one another. Currently, she expresses uncertainty about her feelings regarding being alive though notes "today a lot better". She reports no prior suicide attempts. She works in [employer], which may have influenced her understanding of medication effects, although she denies knowing what they would do and did not research the pills she took before the overdose. Prior to this incident, approximately one month ago, she had started teletherapy and was prescribed Zoloft and Vistaril by her primary care physician. She reports a history of two negative experiences with inpatient psychiatric treatment as an adolescent. She expressed a preference for voluntary inpatient treatment over involuntary treatment. Psychiatric ROS notable for no current symptoms of jaspal or psychosis reported. Her current living situation involves residing with her ex-partner, and there are many firearms present in the home (>50), some of which are unsecured. She owns one of these firearms. " Past Psychiatric History Previous Psych History: depression since age [age] but no symptoms since age 20 Current Psychiatric Diagnosis: Unspecified depressive disorder Outpatient Services: teletherapy Previous Psych Admissions: [facility] during adolescence for depression Do You Have Access To A Gun?: Yes History of Previous Suicide Attempt: Yes (overdose leading to this admission) Past Medication Trials: tried a sedating antidepressant in the past hx Ritalin during childhood for ADHD often gets elevated HR after starting an SSRI Past Head Trauma/Neuro History History of Concussion/Seizure: Yes hx concussion in mid-20s Allergies Allergy/AdvReac Type Severity Reaction Status Date / Time doxepin Allergy Severe ITCHING Unverified 07/26/24 08:34 Home Medications Medication Instructions Recorded Confirmed Type hydroxyzine HCl 10 mg tablet 10 mg PO TID PRN Anxiety 09/22/24 09/22/24 History sertraline 25 mg tablet 25 mg PO DAILY 09/22/24 09/22/24 History Family History Family History of: Depression and Suicide Completion (maternal great uncle ) Family Mental Health History Comment: mother Alcohol History Hx of Alcohol Use Over the Past 12 Months: Yes AUDIT Total Score: 2 Smoking Use Have You Smoked or Used Tobacco Products in the Last 30 Days: No Smoking Status: Never smoker Substance History Hx of Prescription Med Misuse Over the Past 12 Months: No Hx of Over the Counter Med Misuse Over the Past 12 Months: No Hx of Inhalent Misuse Over the Past 12 Months: No Hx of Organic Substance Use Over the Past 12 Months: No Hx of Illegal Substances/Street Drug Use Over Past 12 Months: No Problems as a Result of Past Substance Use: None Identified Personal History Living Arrangements: Home Childhood: Not much of a relationship with her mother, somewhat of a relationship with her step-father Highest Grade Completed: College Highest Grade Completed Comment: [employer] 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 Other Number Of Children: 0 Beliefs That Will Affect Care: None Current Legal Problems: No Hx Legal Problems: No Hx Traumatic Life Events: Yes Patient History Medical History COVID-19 Surgical History S/P laparoscopy dx for endo (not found) at age 20-21 S/P tonsillectomy S/P cholecystectomy Family History Grandmother (Maternal) Lung cancer great grandmother Denies family history of Ovarian cancer Breast cancer Colorectal cancer Social History Smoking Status: Never smoker Tobacco Type: Declines Hx Alcohol Use: Yes Hx Substance Use: No Preferred Language: Dominican Communication Ability: Effective [employer] Developer Required: No Beliefs That Will Affect Care: None Current Living Situation: Significant Other Feels Safe at Home: Yes Gender Identity: Female Assistive Devices: None Review of Systems Review of Systems: All systems reviewed & are unremarkable except as noted in HPI & below Physical Exam Psychiatric: Orientation: alert and oriented x 3 Apperance: appropriately dressed and appropriately groomed Eye Contact: good eye contact Motor Behavior: no abnormal motor movements Speech: normal rate/rhythm/volume of speech Affect: + depressed affect, + anxious affect and + tearful affect Mood: + depressed mood and + anxious mood Thought Process: goal directed thought process Thought Content: reality based without delusions Suicidal Thoughts: denies suicidal thoughts (bt s/p serious attempt requiring medical admission), denies suicidal plan and denies suicidal intent Homicidal Thoughts: denies homicidal thoughts Hallucinations: no auditory hallucinations and no visual hallucinations Cognition: recent memory grossly intact, remote memory grossly intact, attention grossly intact and language grossly intact Estimated Intelligence: consistent with education level Insight: + fair insight Judgment: + fair judgement Vital Signs (Past 24 Hours): Last Vital Signs Temp 36.9 C 09/25/24 06:41 Pulse 92 H 09/25/24 06:42 Resp 16 09/25/24 06:41 BP 107/75 09/25/24 06:42 Pulse Ox 97 09/24/24 14:15 O2 Del Method Room Air 09/24/24 14:15 Exam Statement: A physical exam was performed on the medical floor by Dr. Sandoval for the purposes of medical clearance. I accept that physical as correct and adequate for the purposes of the inpatient physical exam. Results & Data ([facility]) Current Inpatient Medications Current Inpatient Medications: Current Inpatient Medications Acetaminophen (Acetaminophen 325 Mg Tab) 650 mg PO Q4H PRN PRN Reason: Headache or Minor Fever Stop: 10/24/24 14:58 Al Hydrox/Mg Hydrox/Simethicone (Aluminum/Magnesium Susp 30 Ml Udc) 30 ml PO Q4H PRN PRN Reason: GI Upset Stop: 10/24/24 14:58 Bismuth Subsalicylate (Bismuth Subsalicylate 262 Mg Chew) 2 tab PO Q30M PRN PRN Reason: Loose Stool/Diarrhea Stop: 10/24/24 14:58 Hydroxyzine HCl (Hydroxyzine Hcl 25 Mg Tab) 50 mg PO HSZ PRN PRN Reason: Insomnia Stop: 10/24/24 14:58 Hydroxyzine HCl (Hydroxyzine Hcl 25 Mg Tab) 25 mg PO Q4H PRN PRN Reason: Anxiety Stop: 10/24/24 14:58 Magnesium Hydroxide (Magnesium Hydroxide Susp 30 Ml Udc) 30 ml PO DAILY PRN PRN Reason: Constipation Stop: 10/24/24 14:58 Melatonin (Melatonin 3 Mg Tab) 9 mg PO HS PROSPER Stop: 10/24/24 21:59 Last Admin: 09/24/24 21:26 Dose: 9 mg Sodium Chloride (Sodium Chloride 0.65% Na Soln 45 Ml ([place])) 1 - 2 sprays NA PRN PRN PRN Reason: Nasal Dryness/Congestion Stop: 10/24/24 14:58
[2024-09-25] MEDS: PARoxetine HCL 10 MG TAB PO SCH (11:31)
[2024-09-26] MEDS: hydrOXYzine HCl 10 MG TAB PO PRN (00:02)
--- NOTE | 2024-09-26 09:01 | Psychiatric Progress Note ---
Date of Service September 26, 2024 Impression / Recommendations Impression EJ BARLOW is a 34-year-old woman who currently lives in [place] with ex-partner and sometimes his sons, has a history of depression and anxiety, and was admitted on 09/24/24 13:42 on a 201 voluntary commitment for suicide attempt via polypharmacy. Diagnostically consistent with generalized anxiety disorder, major depressive disorder, and trauma/stressor-related disorder with features of complex trauma exposure and high JINA score (8) but not meeting full PTSD criteria. Recent relationship difficulties and communication issues are noted to be exacerbating current symptoms. Татьяна BPD screening was negative but some features of mood lability with anger, abandonment concerns and distrust that significantly negatively impacted her romantic relationship and for which DBT is likely to be very beneficial. A: Mood improving, denies SI. Tolerating initiation of Paxil. Willing to do outpatient IOP. Overall, I spent a total of 35 minutes on this case including meeting with the patient, reviewing the chart, nursing report, multidisciplinary team meeting, orders, and documentation. (1) Suicide attempt by multiple drug overdose: (2) Trauma and stressor-related disorder: (3) MDD (major depressive disorder), recurrent episode, severe: (4) SUSAN (generalized anxiety disorder): (5) Relationship problem with boyfriend: Plan 09/26/2024: Continue current medications and tx plan. 09/25/2024: The patient was admitted to the [facility] ([facility] mental health unit) on q15 min checks (behavioral with suicide precautions) for safety. The patient will participate in group, recreational, and milieu therapies and will be offered additional individual and family sessions as clinically appropriate. -Start Paxil 10mg daily -Vistaril 10mg anxiety prn and 25mg HS insomnia prn -Recommending [facility] IOP -Reviewed symptom questionnaires: PHQ-9, SUSAN-7, JINA, Татьяна BPD, Mood Disorder Q Inventory Assets Strengths: supportive relationships, willing to get treatment Needs: safety and stabilization, medication adjustment, additional coping skills, increased outpatient services Suicide Risk Level Suicide Risk Level: Moderate (q15 min suicide checks) (s/p serious attempt but now denying SI, glad to be alive, and feels safe in the hospital and able to ask for support) Suicide Risk Level Comments: Risk Factors Assessment Male: No : Yes Do You Have Access To A Gun?: Yes Health Problems: No Mental Health Diagnoses: Yes Substance Use Disorders: No Previous Attempt: Yes (leading to admission) Family History of Suicide: Yes Previous Psychiatric Hospitalization: Yes Hopelessness: No Protective Factors Assessment Employed: Yes Stable Relationships: Yes (but with recent breakup) Supportive Family: No Good Rapport with Provider: Yes Interval History Identifying Information EJ BARLOW is a 34-year-old woman who currently lives in [place] with ex-partner and sometimes his sons, has a history of depression and anxiety, and was admitted on 09/24/24 13:42 on a 201 voluntary commitment for suicide attempt via polypharmacy. Chief Complaint "Good". Review of Systems Sleep Information Total Hours of Sleep: 7 Meal Information Percent Meal Consumed - Breakfast: 100 Percent Meal Consumed - Lunch: 100 Percent Meal Consumed - Dinner: 75 Subjective Subjective Patient was seen & assessed and interval progress reviewed with treatment team. Attending groups, rated her mood as "content". Today reports stable mood. She's been talking with her ex-boyfriend, he's open to doing some of the couples work with IOP. No side effects so far with Paxil. Found low dose Vistaril helpful for sleep without side effects. Denies SI. Physical Exam Psychiatric Orientation: alert and oriented x 3 Apperance: appropriately dressed and appropriately groomed Eye Contact: good eye contact Motor Behavior: no abnormal motor movements Speech: normal rate/rhythm/volume of speech Affect: + constricted affect (but with some smiles) Mood: + anxious mood; no depressed mood Thought Process: goal directed thought process Thought Content: reality based without delusions Suicidal Thoughts: denies suicidal thoughts (bt s/p serious attempt requiring medical admission), denies suicidal plan and denies suicidal intent Homicidal Thoughts: denies homicidal thoughts Hallucinations: no auditory hallucinations and no visual hallucinations Cognition: recent memory grossly intact, remote memory grossly intact, attention grossly intact and language grossly intact Estimated Intelligence: consistent with education level Insight: + fair insight Judgment: + fair judgement Vital Signs (Past 24 Hours) Last Vital Signs Temp 37.0 C 09/26/24 07:10 Pulse 86 09/26/24 07:10 Resp 16 09/26/24 07:10 BP 108/76 09/26/24 07:10 Pulse Ox 97 09/24/24 14:15 O2 Del Method Room Air 09/24/24 14:15 Results & Data ([facility]) Current Inpatient Medications Current Inpatient Medications: Current Inpatient Medications Acetaminophen (Acetaminophen 325 Mg Tab) 650 mg PO Q4H PRN PRN Reason: Headache or Minor Fever Stop: 10/24/24 14:58 Al Hydrox/Mg Hydrox/Simethicone (Aluminum/Magnesium Susp 30 Ml Udc) 30 ml PO Q4H PRN PRN Reason: GI Upset Stop: 10/24/24 14:58 Bismuth Subsalicylate (Bismuth Subsalicylate 262 Mg Chew) 2 tab PO Q30M PRN PRN Reason: Loose Stool/Diarrhea Stop: 10/24/24 14:58 Hydroxyzine HCl (Hydroxyzine Hcl 10 Mg Tab) 10 mg PO Q4H PRN PRN Reason: Anxiety Stop: 10/24/24 14:58 Last Admin: 09/26/24 00:02 Dose: 10 mg Hydroxyzine HCl (Hydroxyzine Hcl 25 Mg Tab) 25 mg PO HSZ PRN PRN Reason: Insomnia Stop: 10/24/24 14:58 Magnesium Hydroxide (Magnesium Hydroxide Susp 30 Ml Udc) 30 ml PO DAILY PRN PRN Reason: Constipation Stop: 10/24/24 14:58 Melatonin (Melatonin 3 Mg Tab) 9 mg PO HS PROSPER Stop: 10/24/24 21:59 Last Admin: 09/25/24 22:15 Dose: 9 mg Paroxetine HCl (Paroxetine Hcl 10 Mg Tab) 10 mg PO QAM PROSPER Stop: 10/25/24 10:44 Last Admin: 09/26/24 08:42 Dose: 10 mg Sodium Chloride (Sodium Chloride 0.65% Na Soln 45 Ml ([place])) 1 - 2 sprays NA PRN PRN PRN Reason: Nasal Dryness/Congestion Stop: 10/24/24 14:58 Mental Health & Subst Abuse Tx Psychiatrist Name of Psychiatrist: Chandrika Calvert Psychiatrist's Date Of Appointment With Psychiatric Provider: 10/03 Time of Appointment with Psychiatrist: 2:30pm Psychiatric Appointment Comment: Intake appt. Will take 1.5hrs. Appts will get shorter. $40copay Therapist Name of Therapist: Stephon [facility] Therapist's Date of Therapist Appointment: 09/28/24 Time of Therapist Appointment: 10am Therapy Appointment Comment: Will resume with [facility] (Kiko Harris) after [facility] Post Discharge Appointments Primary Care Physician Name Of Family Doctor/PCP: [facility] Primary [facility] Date of Future Appointment with PCP: 09/28 Time of Appointment with PCP: 3:25pm Partial or Psych Rehab Name of Partial or Psych Rehab: [facility] Contact Information Discharge Discharge Address: [facility] [place] [address] (1) Suicide attempt by multiple drug overdose Encounter type: initial encounter Qualified Code(s): T50.912A - Poisoning by multiple unspecified drugs, medicaments and biological substances, intentional self-harm, initial encounter
[2024-09-26] MEDS: ACETAMINOPHEN 325 MG TAB PO PRN (14:30)
[2024-09-26] MEDS: hydrOXYzine HCl 25 MG TAB PO PRN (22:18)
[2024-09-27 06:25] VITALS: RESP 18; TEMP 98.8
--- NOTE | 2024-09-27 08:54 | Discharge Summary ---
Date of Service September 27, 2024 History of Present Illness She presents for psychiatric admission following suicide attempt via polypharmacy overdose in the context of multiple stressors including the end of her relationship with her partner about a month ago, ongoing cohabitation with her ex-partner, and a history of childhood trauma with significant difficulty with trust and communication. Her symptoms have been ongoing issues but have worsened over the past month following the end of her relationship. She reports feeling 'great' today, which she notes is different from how she has felt over the past couple of months, attributing this to being 'happy to be here.' However, she continues to struggle with anxiety, particularly in her relationships, describing a hard time communicating, which leads to issues and anger. She also mentions having trust issues stemming from fear of abandonment, which affects her romantic relationships. She reports hyperfixating on things, though this has improved with recent Zoloft use She endorses symptoms of anxiety including difficulty communicating, trust issues, fear of abandonment, and hyperfixation. She denies current panic attacks but mentions experiencing them as a child during arguments with her mother. Started outpatient therapy and they were discussing that her trust issues were leading her to be scared of being alone and she agrees with this. She is currently prescribed sertraline 25mg which was started about three weeks ago (seemed to help her feel more centered but caused elevated heart rate and numbness/tingling). Psychiatric ROS notable for no current nor history of symptoms of jaspal, psychosis, PTSD, OCD (but can get hyperfixated on things) nor eating disorder. History of self-harm via cutting, not since adolescence. Additional history per my consult note on 09/22/2024: " Rogelio was medically admitted following a suicide attempt via medication overdose (04-07 unison, 10 Hydroxyzine and unknown amount of Zoloft) in the context of a recent breakup from a 7-year relationship. The attempt occurred yesterday after a conversation with her ex-partner about their relationship status that did not go well. She had been thinking about suicide for approximately 15 minutes before impulsively taking an unspecified quantity of pills. She acknowledges consuming alcohol yesterday, specifically two 8% hard ciders and a hard seltzer, which is atypical for her. She reports that she and her ex-partner have been living together for the past 3 weeks since their breakup, with her ex-partner working night shifts and her working day shifts so they rarely see one another. Currently, she expresses uncertainty about her feelings regarding being alive though notes "today a lot better". She reports no prior suicide attempts. She works in [employer], which may have influenced her understanding of medication effects, although she denies knowing what they would do and did not research the pills she took before the overdose. Prior to this incident, approximately one month ago, she had started teletherapy and was prescribed Zoloft and Vistaril by her primary care physician. She reports a history of two negative experiences with inpatient psychiatric treatment as an adolescent. She expressed a preference for voluntary inpatient treatment over involuntary treatment. Psychiatric ROS notable for no current symptoms of jaspal or psychosis reported. Her current living situation involves residing with her ex-partner, and there are many firearms present in the home (>50), some of which are unsecured. She owns one of these firearms. " Physical Exam Vital Signs (Past 24 Hours) Last Vital Signs Temp 37.1 C 09/27/24 06:00 Pulse 73 09/27/24 06:00 Resp 18 09/27/24 06:00 BP 115/74 09/27/24 06:25 Pulse Ox 97 09/24/24 14:15 O2 Del Method Room Air 09/24/24 14:15 Principal Diagnosis Major Depressive Disorder Psychiatric Data See daily stay summary. In short, patient was engaged with the social/therapeutic milieu of the unit, safety was maintained and the patient was cooperative with care. Medication changes included initiation of Paxil for MDD/SUSAN, Vistaril 25mg daily prn for anxiety/insomnia and discontinuation of sertraline and they tolerated this well. A support session was held and safety plan was completed prior to discharge. They participated in safety planning and in discussions about ways to seek support and recognizing warning signs and utilizing coping skills. Reviewed ways to have their safety plan and contacts easily available should thoughts of SI re-emerge in the future. Reviewed importance of seeking emergency care should SI intensify, worsen or should they feel unsafe in the future which they agree to do. On the day of discharge they stated their mood was "good" and remained future-oriented including showering, completing IOP intake, getting her nails done, spending time with her partner and his sons over the weekend and engaging in aftercare appointments for psychiatry, therapy IOP via [facility] and getting back to work. Day of Discharge Assessment Today the patient voices readiness for discharge. They note improvement in mood and anxiety. They deny thoughts of harm to self or others. Thoughts are organized and they are clinically improved from admission. There is no evidence of psychosis. They improved in the hospital with support and medication adjustments. They agree to take medications as prescribed and keep follow-up appointments. At the time of the discharge they are deemed to be stable and appropriate for outpatient level of care. They are not deemed to be at imminent risk of harm to self or others. They are aware of emergency and crisis services. Knows to call 911 or go to nearest emergency care center if in a crisis which cannot be handled as an outpatient. Suicide risk assessment: Acute risk is low given improvement in mood and denial of SI, lack of access to lethal means, improvement in sleep, hopefulness. Chronic risk is moderate given some non-modifiable risk factors: psychiatric co-morbid diagnoses, periods of impulsivity, prior attempt, hx self-harm, emotional reactivity, prior psychiatric hospitalizations, childhood trauma, family history of by suicide but also with protective factors including employed, good social support, sense of responsibility to family and social supports, outpatient care in place, positive coping skills, positive problem solving, willingness to engage with treatment, self-observation. Counseled on ways to reduce acute and chronic risk including engaging with outpatient providers, using safety plan if needed, utilizing supports, taking medication, and using coping skills. Modifiable risk factors of SI and depression were addressed during hospitalization through development of new coping skills, support meeting, safety planning, and medication adjustments. Discharge physical exam: See admission H&P, MSE per above and day of discharge summary. Overall, I spent a total of 35 minutes on this case including meeting with the patient, reviewing the chart, nursing report, multidisciplinary team meeting, discharge orders, anticipatory planning, safety planning, risk assessment and documentation. Transition of Care Transition Of Care Record: was reviewed with the patient Advance Directives Advance Directives Information Provided: Yes Advance Directives: No Mental Health Advance Directive: No Advance Directives on File: No Living Will: No Power of Import Export Manager: No Advance Directives Reason:: Declines as Mental Health Visit. Suicide Risk Level Suicide Risk Level Comments: Acute risk is low given denial of SI, see further assessment above Risk Factors Assessment Male: No : Yes Do You Have Access To A Gun?: No (partner secured all guns in locked room and keypad code changed) Health Problems: No Mental Health Diagnoses: Yes Substance Use Disorders: No Previous Attempt: Yes (leading to admission) Family History of Suicide: Yes Previous Psychiatric Hospitalization: Yes Hopelessness: No Protective Factors Assessment Responsible for Young Children: Yes (partner's children) Employed: Yes Stable Relationships: Yes (but with recent breakup but now reconciling ) Supportive Family: No Good Rapport with Provider: Yes Hospital Course (1) Suicide attempt by multiple drug overdose: (2) Trauma and stressor-related disorder: (3) MDD (major depressive disorder), recurrent episode, severe: (4) SUSAN (generalized anxiety disorder): (5) Relationship problem with boyfriend: Plan 09/27/2024: Feels safe and desires discharge. Support meeting held. 09/26/2024: Continue current medications and tx plan. 09/25/2024: The patient was admitted to the [facility] ([facility]) on q15 min checks (behavioral with suicide precautions) for safety. The patient will participate in group, recreational, and milieu therapies and will be offered additional individual and family sessions as clinically appropriate. -Start Paxil 10mg daily -Vistaril 10mg anxiety prn and 25mg HS insomnia prn -Recommending [facility] -Reviewed symptom questionnaires: PHQ-9, SUSAN-7, JINA, Татьяна BPD, Mood Disorder Q Mental Health & Subst Abuse Tx Psychiatrist Name of Psychiatrist: Chandrika Calvert Psychiatrist's Date Of Appointment With Psychiatric Provider: 10/03 Time of Appointment with Psychiatrist: 2:30pm Psychiatric Appointment Comment: Intake appt. Will take 1.5hrs. Appts will get shorter. $40copay Therapist Name of Therapist: [facility] Therapist's Date of Therapist Appointment: 09/28/24 Time of Therapist Appointment: 10am Therapy Appointment Comment: Will resume with [facility] [employer] (Kiko Harris) after [facility] Post Discharge Appointments Primary Care Physician Name Of Family Doctor/PCP: [facility] Date of Future Appointment with PCP: 09/28 Time of Appointment with PCP: 3:25pm Partial or Psych Rehab Name of Partial or Psych Rehab: [facility] Other #1: Name of Aftercare Appointment: [facility] (Virtual) Phone Number of Aftercare Appointment: Date of Aftercare Appointment: 09/28/24 Time of Aftercare Appointment: 10:00 AM Contact Information Discharge Discharge Address: [address] [place] [address] Discharge Plan Discharge Items Patient Disposition: Home - Self-Care Reason For Visit: MDD Discharge Diagnosis: Major Depressive Disorder Activity: Resume your previous activity Non-emergency contact: Primary Care Provider, Psychiatrist and Therapist Call non-emergency contact if: you have any medication questions and your symptoms worsen Follow-up/Referrals: Lorna Gerber PA-C [Primary Care Provider] - Diet: Regular Addtl Attending Provider Instructions: Optional mobile apps we discussed: -Suicide safety plan -Virtual Hope Box -[employer], [employer] search restorative or gentle yoga or guided mindfulness SPECIAL CARE INSTRUCTIONS: 1. Follow through with your scheduled aftercare appointments. If unable to keep an appointment, please call to reschedule. 2. Take your medication only as prescribed. Medication should not be changed or stopped without the approval of your doctor. In the event of worsening symptoms or concerns about side effects, contact your doctor immediately. 3. Utilize new healthy coping skills, anger management skills, and stress management skills learned during your hospitalization. Journal feelings and process them with a support person. Identify stressors or situations that may result in relapse, deterioration or inappropriate behaviors and develop a plan to deal with those issues. 4. If your coping skills are ineffective and you are in crisis, contact your outpatient providers for direction. If unable to reach your providers, please call the [facility] CRISIS LINE AT , go to the [facility] walk-in center at [address] [place] [address], [address], [place], or go to the closest Emergency Room. 5. Avoid alcohol and un-prescribed drugs. 6. You have been provided with the Mental Health Advance Directives Pamphlet for your review. 7. Your condition is stable for discharge to outpatient level of care, but recovery is an ongoing process. Ifthoughts to harm yourself or others return, follow the safety plan developed during your stay. Planning for a safe return home includes securing weapons. Our treatment team recommends weaponsbe removed from the home until your outpatient provider reassesses your progress. In rare cases where the items themselvescannot be removed, guns and ammunitionshould be secured separatelyand keys stored by a reliable personoutside of the home. If you were admitted on an involuntary commitment, the police or other legal authorities may be involved in this process. AFTERCARE APPOINTMENTS: * Please call your insurance company prior to your scheduled appointment to confirm your aftercare providers are covered. Take your insurance information to your appointments. WHO TO CALL AND WHEN: Medical Emergencies: For questions or emergencies related to your hospital stay, please contact the Inpatient Behavioral Health Unit at [phone]. A event organizer is on-call 17/01 for the Behavioral Health Unit for emergencies At any time you feel your situation is an emergency, you may also call 911 immediately. National Crisis Hotline: 243 Pending Studies at Discharge: No Stand-Alone Forms: My [facility] Medications and DC Order Prescriptions: New hydroxyzine HCl 25 mg Tablet 25 mg PO DAILY PRN (Reason: anxiety/insomnia) 30 Days Qty: 30 0RF paroxetine HCl 10 mg Tablet 10 mg PO QAM 30 Days Qty: 30 0RF paroxetine HCl [Paxil] 10 mg tablet 10 mg PO DAILY 30 Days Qty: 30 0RF Discontinued hydroxyzine HCl 10 mg tablet 10 mg PO TID PRN (Reason: Anxiety) Hold Instructions: Resume on 09/29/24. sertraline 25 mg tablet 25 mg PO DAILY Hold Instructions: Resume on 09/29/24. Discharge Orders: Discharge Order (Routine); Ordered 09/27/24 Ordered By: Rina Ortega Admission Data Admit Date/Time: 09/24/24 13:42 Attending Provider: Rina Ortega Admit Provider: Rina Ortega Primary Care Provider: Lorna Gerber Other Interventions: Discharge Summary Assessment (RN) Last Done: 09/27/24 12:10 Coding Level of Care Code 27173 D/C day mgmt > 30 min Diagnoses Suicide attempt by multiple drug overdose T50.912A Encounter type: initial encounter Trauma and stressor-related disorder F43.9 MDD (major depressive disorder), recurrent episode, severe F33.2 SUSAN (generalized anxiety disorder) F41.1 Relationship problem with boyfriend Z63.0
[2024-09-27] MEDS: NAPROXEN 375 MG TAB PO PRN (09:56)
[2024-09-27 12:12] VITALS: BP 117/81; PULSE 92
== END 2024-09-27 15:00 | disposition home or self-care (01) | DRG 918 ==
LOC: 3S 13:42